=== PATIENT | male | born 1945 | race Caucasian/White ===

== ENCOUNTER 2020-05-31 07:02 | Inpatient (IN) ==
[2020-05-31] MEDS ORDERED: Ondansetron 4 MG/2 ML VIAL IVP PRN (13:40)
[2020-05-31] MEDS: Piperacillin/Tazobactam 3.375 GM in 0.9 % Sodium Chloride Mini Bag 100 ML IVPB SCH ×2 (15:16→23:26)
[2020-05-31] MEDS: Vancomycin 1,750 MG/517.5 ML IV.SOLN IVPB SCH (16:24)
[2020-05-31] MEDS: *HR* Heparin 5,000 UNIT/ML VIAL SQ SCH (18:27)
[2020-05-31] MEDS: Acetaminophen 325 MG TABLET PO PRN (19:44)
[2020-05-31] MEDS: Budesonide/Formoterol 160/4.5 1 PUFF INH IH SCH (20:37)
[2020-05-31] MEDS: Ipratropium/Albuterol Neb 3 ML IH PRN (20:38)
[2020-06-01] MEDS: Ipratropium/Albuterol Neb 3 ML IH PRN ×3 (03:43→12:07)
[2020-06-01 05:07] LABS: Basophils % 0.1 %; Eosinophils % 0.1 %; Hematocrit 30.9 % (37.5-50.1); Hemoglobin 8.8 g/dL (12.9-16.9); Mean Corpuscular HGB Conc 28.5 g/dL (31.6-35.5)
[2020-06-01 05:09] LABS: Lymphocytes # 0.4 K/mcL (0.6-4.6); Lymphocytes % 1.6 %; Mean Corpuscular Hemoglobin 27.3 pg (28.0-33.3); Mean Platelet Volume 9.2 fL (9.4-12.4); Monocytes # 1.3 K/mcL (0.0-1.3); Monocytes % 5.9 %; Platelet Count 227 K/mcL (140-400); Red Blood Count 3.22 M/mcL (4.19-5.50); Segmented Neutrophils % 91.3 %; White Blood Count 22.5 K/mcL (4.3-11.1)
[2020-06-01] MEDS: *HR* Heparin 5,000 UNIT/ML VIAL SQ SCH ×2 (05:17→17:24)
[2020-06-01 05:19] LABS: Neutrophils # 20.5 K/mcL (1.6-8.9)
[2020-06-01 05:29] LABS: Calcium 7.8 mg/dL (8.6-10.3); Magnesium 2.1 mg/dL (1.6-2.6); Potassium 4.3 mEq/L (3.5-5.1)
[2020-06-01 06:16] LABS: Hypochromasia Present (Not Present); Platelet Estimate Normal (Normal)
[2020-06-01] MEDS: Budesonide/Formoterol 160/4.5 1 PUFF INH IH SCH ×2 (09:19→22:30)
[2020-06-01] MEDS: amLODIPine 5 MG TABLET PO SCH (09:36)
[2020-06-01] MEDS: Piperacillin/Tazobactam 3.375 GM in 0.9 % Sodium Chloride Mini Bag 100 ML IVPB SCH ×2 (09:37→16:19)
[2020-06-01] MEDS: Acetaminophen 325 MG TABLET PO PRN ×2 (11:29→20:31)
[2020-06-01] MEDS ORDERED: 0.9 % Sodium Chloride 1,000 ML IVC SCH (12:30)
[2020-06-01] MEDS ORDERED: 0.9 % Sodium Chloride 1,000 ML ONE (12:33)
[2020-06-01] MEDS ORDERED: 0.9 % Sodium Chloride 500 ML IVC SCH (12:45)
[2020-06-01 13:55] LABS: Adenovirus Not Detected (Not Detect); Coronavirus 229E Not Detected (Not Detect); Coronavirus HKU1 Not Detected (Not Detect); Coronavirus NL63 Not Detected (Not Detect); Coronavirus OC43 Not Detected (Not Detect); Human Metapneumovirus Not Detected (Not Detect); Human Rhinovirus/Enterovirus Not Detected (Not Detect); Influenza A Subtype 2009 H1 Not Detected (Not Detect); SARS-CoV-2 Not Detected (Not Detect)
[2020-06-01 13:56] LABS: Bordetella Pertussis Not Detected (Not Detect); Chlamydophila pneumoniae Not Detected (Not Detect); Influenza B Not Detected (Not Detect); Mycoplasma pneumoniae Not Detected (Not Detect); Parainfluenza Virus 1 Not Detected (Not Detect); Parainfluenza Virus 2 Not Detected (Not Detect); Parainfluenza Virus 3 Not Detected (Not Detect); Parainfluenza Virus 4 Not Detected (Not Detect); Respiratory Syncytial Virus Not Detected (Not Detect)
[2020-06-01] MEDS: Vancomycin 1,750 MG/517.5 ML IV.SOLN IVPB SCH (15:57)
[2020-06-02] MEDS: Piperacillin/Tazobactam 3.375 GM in 0.9 % Sodium Chloride Mini Bag 100 ML IVPB SCH (00:20)
[2020-06-02] MEDS: Ipratropium/Albuterol Neb 3 ML IH PRN (00:26)
[2020-06-02 03:49] LABS: Basophils % 0.2 %; Eosinophils % 1.2 %; Mean Corpuscular HGB Conc 28.2 g/dL (31.6-35.5)
[2020-06-02 03:50] LABS: Eosinophils # 0.2 K/mcL (0.0-0.6); Hematocrit 30.5 % (37.5-50.1); Hemoglobin 8.6 g/dL (12.9-16.9); Immature Granulocytes % 1.6 % (0-4); Lymphocytes # 0.3 K/mcL (0.6-4.6); Lymphocytes % 1.3 %; Mean Corpuscular Hemoglobin 27.4 pg (28.0-33.3); Mean Corpuscular Volume 97.1 fL (83.0-100.0); Mean Platelet Volume 9.1 fL (9.4-12.4); Monocytes # 1.4 K/mcL (0.0-1.3); Monocytes % 7.3 %; Neutrophils # 16.9 K/mcL (1.6-8.9); Nucleated Red Blood Cells 0.1 /100 WBC (0); Platelet Count 236 K/mcL (140-400); Red Blood Count 3.14 M/mcL (4.19-5.50); Red Cell Distribution Width 15.4 % (11.5-14.5); Segmented Neutrophils % 88.4 %; White Blood Count 19.1 K/mcL (4.3-11.1)
[2020-06-02] MEDS: Acetaminophen 325 MG TABLET PO PRN (03:50)
[2020-06-02 04:08] LABS: BUN/Creatinine Ratio 18 (6-26); Blood Urea Nitrogen 41 mg/dL (8-23); Calcium 7.8 mg/dL (8.6-10.3); Carbon Dioxide 26 mEq/L (23-29); Chloride 102 mEq/L (98-107); Glucose 151 mg/dL (70-105); Osmolality,Calculated 295 (280-300); Potassium 4.5 mEq/L (3.5-5.1); Sodium 136 mEq/L (136-145); eGFR For African Americans 34 (> 60); eGFR For Non-African Americans 28 (> 60)
[2020-06-02 04:27] LABS: Hypochromasia Present (Not Present); Platelet Estimate Normal (Normal)
[2020-06-02 04:35] LABS: ABG Base Excess 2 mEq/L (-2 to 3); ABG HCO3 30 mEq/L (21-27); ABG Oxygen Saturation 89 % (95-98); ABG PCO2 69 mmHg (35-45); ABG PH 7.25 pH Units (7.32-7.45); ABG PO2 67 mmHg (85-104); ABG TCO2 33 mEq/L (20-26)
[2020-06-02] MEDS: *HR* Heparin 5,000 UNIT/ML VIAL SQ SCH ×2 (05:19→17:33)
[2020-06-02] MEDS: Budesonide/Formoterol 160/4.5 1 PUFF INH IH SCH ×2 (07:36→20:20)
[2020-06-02] MEDS: Cefepime HCl 1,000 MG in 0.9 % Sodium Chloride Mini Bag 100 ML IVPB SCH ×2 (08:39→17:32)
[2020-06-02] MEDS: MetroNIDAZOLE 500 MG/100 ML 500 MG/100 ML BAG IVPB SCH ×2 (08:39→15:39)
[2020-06-02] MEDS: amLODIPine 5 MG TABLET PO SCH (08:55)
[2020-06-02] MEDS ORDERED: *HR* FentaNYL (PF) 100 MCG/2 ML VIAL ONE (10:45)
[2020-06-02] MEDS ORDERED: Lidocaine -MPF 2% 2 ML VIAL ONE (10:46)
[2020-06-02] MEDS ORDERED: *HR* Propofol 200 MG/20 ML VIAL IVP ONE (10:46)
[2020-06-02] MEDS ORDERED: Ondansetron 4 MG/2 ML VIAL ONE (10:46)
[2020-06-02] MEDS ORDERED: *HR* Succinylcholine 200 MG/10 ML VIAL IVP ONE (10:46)
[2020-06-02] MEDS ORDERED: Dexamethasone 4 MG/ML VIAL ONE (10:46)
[2020-06-02] MEDS ORDERED: *HR* PHENYLEPHRINE 1,000 MCG/10 ML SYRINGE IVP ONE (12:04)
[2020-06-02] MEDS ORDERED: *HR* EPINEPHrine 1 MG/10 ML SYRINGE INTRATRACH PRN (12:13)
[2020-06-02] MEDS: MethylPREDNISolone 40 MG/ML VIAL IVP SCH ×2 (13:52→17:32)
[2020-06-02 14:59] LABS: Amorphous Sediment,Urine Few per hpf (None-Few); Bilirubin,Urine Negative (Negative); Blood,Urine Negative (Negative); Clarity,Urine Turbid (Clear); Color,Urine Yellow (Yellow); Glucose,Urine (UA) Normal (Normal); Ketones,Urine Negative (Negative); Leukocyte Esterase,Urine Negative (Negative); Nitrite,Urine Negative (Negative); Protein,Urine 70 mg/dL (Neg-Trace); Specific Gravity,Urine 1.018 (1.010-1.025); Squamous Epithelial Cell,Urine Few per hpf (None-Few); Urobilinogen,Urine Normal (Normal)
[2020-06-02 15:19] LABS: Iron < 10 mcg/dL (65-175); Transferrin 110 mg/dL (203-362)
[2020-06-02 17:34] LABS: Appearance of Body Fluid Clear (Clear); Volume of Body Fluid 20 mL
[2020-06-02] MEDS ORDERED: Albumin 25% 25gram/100mL 25 GM/100 ML IV.SOLN IVPB ONE (20:15)
[2020-06-03] MEDS: MetroNIDAZOLE 500 MG/100 ML 500 MG/100 ML BAG IVPB SCH ×2 (00:26→07:46)
[2020-06-03 04:21] LABS: Basophils % 0.1 %; Hemoglobin 8.1 g/dL (12.9-16.9); Mean Platelet Volume 9.4 fL (9.4-12.4); Platelet Count 270 K/mcL (140-400); Red Cell Distribution Width 15.4 % (11.5-14.5)
[2020-06-03 04:22] LABS: Hematocrit 29.7 % (37.5-50.1); Immature Granulocytes % 1.8 % (0-4); Lymphocytes # 0.4 K/mcL (0.6-4.6); Lymphocytes % 2.2 %; Mean Corpuscular HGB Conc 27.3 g/dL (31.6-35.5); Mean Corpuscular Hemoglobin 27.6 pg (28.0-33.3); Monocytes # 0.3 K/mcL (0.0-1.3); Monocytes % 1.7 %; Neutrophils # 16.4 K/mcL (1.6-8.9); Red Blood Count 2.94 M/mcL (4.19-5.50); Segmented Neutrophils % 94.2 %; White Blood Count 17.4 K/mcL (4.3-11.1)
[2020-06-03 04:39] LABS: Calcium 7.6 mg/dL (8.6-10.3); Potassium 5.3 mEq/L (3.5-5.1)
[2020-06-03 05:00] LABS: Platelet Estimate Normal (Normal)
[2020-06-03] MEDS: *HR* Heparin 5,000 UNIT/ML VIAL SQ SCH ×2 (05:12→17:32)
[2020-06-03] MEDS: Cefepime HCl 1,000 MG in 0.9 % Sodium Chloride Mini Bag 100 ML IVPB SCH ×2 (05:12→17:31)
[2020-06-03] MEDS: MethylPREDNISolone 40 MG/ML VIAL IVP SCH ×2 (05:12→17:32)
[2020-06-03] MEDS ORDERED: 0.9 % Sodium Chloride 250 ML IVC PRN (07:41)
[2020-06-03] MEDS ORDERED: 0.9 % Sodium Chloride 1,000 ML PRIME SCH (07:45)
[2020-06-03] MEDS: amLODIPine 5 MG TABLET PO SCH (07:46)
[2020-06-03] MEDS ORDERED: 0.9 % Sodium Chloride 500 ML ONE (07:51)
[2020-06-03] MEDS ORDERED: *HR* Heparin 5,000 UNIT/ML VIAL ONE (08:08)
[2020-06-03] MEDS: Budesonide/Formoterol 160/4.5 1 PUFF INH IH SCH ×2 (11:11→20:23)
[2020-06-03 11:21] LABS: INR 1.2; Prothrombin Time 13.6 Seconds (9.4-12.1)
[2020-06-03 11:43] LABS: Hepatitis B Surface Antibody < 3.10 mIU/mL
[2020-06-03 11:54] LABS: Hepatitis B Surface Antigen Nonreactive (Nonreactive)
[2020-06-03] MEDS ORDERED: *HR* Heparin 10,000 UNIT/10 ML VIAL ONE (14:31)
[2020-06-03] MEDS: metroNIDAZOLE 500 MG TABLET PO SCH ×2 (15:07→21:27)
[2020-06-03] MEDS: Ipratropium/Albuterol Neb 3 ML IH PRN (16:12)
[2020-06-04 03:14] LABS: Basophils % 0.1 %; Monocytes % 3.8 %
[2020-06-04 03:16] LABS: Hematocrit 29.5 % (37.5-50.1); Hemoglobin 8.2 g/dL (12.9-16.9); Immature Granulocytes % 1.4 % (0-4); Lymphocytes # 0.3 K/mcL (0.6-4.6); Mean Corpuscular HGB Conc 27.8 g/dL (31.6-35.5); Mean Corpuscular Hemoglobin 26.9 pg (28.0-33.3); Mean Corpuscular Volume 96.7 fL (83.0-100.0); Mean Platelet Volume 9.4 fL (9.4-12.4); Monocytes # 0.6 K/mcL (0.0-1.3); Neutrophils # 15.3 K/mcL (1.6-8.9); Nucleated Red Blood Cells 0.1 /100 WBC (0); Platelet Count 288 K/mcL (140-400); Red Blood Count 3.05 M/mcL (4.19-5.50); Red Cell Distribution Width 15.4 % (11.5-14.5); Segmented Neutrophils % 92.7 %; White Blood Count 16.5 K/mcL (4.3-11.1)
[2020-06-04 03:30] LABS: Calcium 7.6 mg/dL (8.6-10.3); Potassium 4.5 mEq/L (3.5-5.1)
[2020-06-04 04:08] LABS: Platelet Estimate Normal (Normal)
[2020-06-04] MEDS: *HR* Heparin 5,000 UNIT/ML VIAL SQ SCH ×2 (05:13→19:05)
[2020-06-04] MEDS: Cefepime HCl 1,000 MG in 0.9 % Sodium Chloride Mini Bag 100 ML IVPB SCH (05:14)
[2020-06-04] MEDS: MethylPREDNISolone 40 MG/ML VIAL IVP SCH ×2 (05:14→19:03)
[2020-06-04] MEDS ORDERED: 0.9 % Sodium Chloride 250 ML IVC PRN (07:10)
[2020-06-04] MEDS: amLODIPine 5 MG TABLET PO SCH (07:45)
[2020-06-04] MEDS: metroNIDAZOLE 500 MG TABLET PO SCH (07:45)
[2020-06-04] MEDS: Budesonide/Formoterol 160/4.5 1 PUFF INH IH SCH ×2 (09:49→23:02)
[2020-06-04] MEDS ORDERED: *HR* LORazepam 2 MG/ML VIAL IVP ONE (11:15)
[2020-06-04] MEDS ORDERED: *HR* LORazepam 2 MG/ML VIAL ONE (11:18)
[2020-06-04 11:57] LABS: Bacteria,Urine Few per hpf (None-Few); Bilirubin,Urine Negative (Negative); Blood,Urine Moderate (Negative); Budding Yeast,Urine Few per hpf (None Seen); Clarity,Urine Turbid (Clear); Color,Urine Light-Yellow (Yellow); Glucose,Urine (UA) Normal (Normal); Ketones,Urine Trace mg/dL (Negative); Leukocyte Esterase,Urine Negative (Negative); Mucus,Urine Few per lpf (None-Few); Nitrite,Urine Negative (Negative); Protein,Urine 100 mg/dL (Neg-Trace); RBC,Urine TNTC per hpf (0-3); Specific Gravity,Urine 1.016 (1.010-1.025); Squamous Epithelial Cell,Urine Few per hpf (None-Few); Urobilinogen,Urine Normal (Normal)
[2020-06-04] MEDS ORDERED: *HR* Heparin 10,000 UNIT/10 ML VIAL IV PRN (14:34)
[2020-06-04 23:03] LABS: Lambda Qnt Free Light Chains 49.89 mg/L (5.71-26.30)
[2020-06-05 03:05] LABS: Hematocrit 29.2 % (37.5-50.1); Lymphocytes % 3.4 %
[2020-06-05 03:07] LABS: Basophils % 0.2 %; Hemoglobin 8.3 g/dL (12.9-16.9); Immature Granulocytes % 2.1 % (0-4); Lymphocytes # 0.5 K/mcL (0.6-4.6); Mean Corpuscular HGB Conc 28.4 g/dL (31.6-35.5); Mean Corpuscular Hemoglobin 27.5 pg (28.0-33.3); Mean Corpuscular Volume 96.7 fL (83.0-100.0); Mean Platelet Volume 9.1 fL (9.4-12.4); Monocytes # 0.5 K/mcL (0.0-1.3); Monocytes % 3.6 %; Platelet Count 297 K/mcL (140-400); Red Blood Count 3.02 M/mcL (4.19-5.50); Segmented Neutrophils % 90.7 %; White Blood Count 13.5 K/mcL (4.3-11.1)
[2020-06-05 03:10] LABS: Neutrophils # 12.2 K/mcL (1.6-8.9)
[2020-06-05] MEDS: Haloperidol Lactate 5 MG/ML VIAL IVP PRN (03:25)
[2020-06-05 03:27] LABS: Calcium 7.7 mg/dL (8.6-10.3); Potassium 4.7 mEq/L (3.5-5.1)
[2020-06-05 03:32] LABS: Platelet Estimate Normal (Normal)
[2020-06-05 03:33] LABS: Hypochromasia Present (Not Present)
[2020-06-05] MEDS: *HR* Heparin 5,000 UNIT/ML VIAL SQ SCH ×2 (05:07→16:38)
[2020-06-05] MEDS: MethylPREDNISolone 40 MG/ML VIAL IVP SCH ×2 (05:08→16:35)
[2020-06-05] MEDS ORDERED: 0.9 % Sodium Chloride 250 ML IVC PRN (07:07)
[2020-06-05] MEDS ORDERED: *HR* Heparin 10,000 UNIT/10 ML VIAL IV PRN (07:07)
[2020-06-05] MEDS ORDERED: 0.9 % Sodium Chloride 1,000 ML PRIME SCH (07:15)
[2020-06-05] MEDS: amLODIPine 5 MG TABLET PO SCH (07:52)
[2020-06-05] MEDS: Budesonide/Formoterol 160/4.5 1 PUFF INH IH SCH ×2 (07:53→23:12)
[2020-06-05] MEDS: *HR* HYDROcodone/Acet 5/325 mg TABLET PO PRN ×2 (10:14→19:43)
[2020-06-05 10:52] LABS: Kappa Qnt Free Light Chains 90.78 mg/L (3.30-19.40)
[2020-06-05] MEDS ORDERED: Perflutren Lipid Microsphere 1.3 ML in 0.9 % Sodium Chloride 8.7 ML IVP PRN (15:39)
[2020-06-05] MEDS: Cefepime HCl 1,000 MG in Water for inj. (sterile) 10 ML IVP SCH (16:38)
[2020-06-06] MEDS: *HR* Heparin 5,000 UNIT/ML VIAL SQ SCH ×2 (04:37→17:01)
[2020-06-06] MEDS: MethylPREDNISolone 40 MG/ML VIAL IVP SCH ×2 (04:37→17:00)
[2020-06-06 05:05] LABS: Basophils # 0.1 K/mcL (0.0-0.2); Basophils % 0.4 %; Hematocrit 30.6 % (37.5-50.1); Hemoglobin 8.9 g/dL (12.9-16.9); Immature Granulocytes % 3.8 % (0-4); Lymphocytes # 0.7 K/mcL (0.6-4.6); Lymphocytes % 5.5 %; Mean Corpuscular HGB Conc 29.1 g/dL (31.6-35.5); Mean Corpuscular Hemoglobin 27.6 pg (28.0-33.3); Mean Corpuscular Volume 94.7 fL (83.0-100.0); Mean Platelet Volume 8.9 fL (9.4-12.4); Monocytes # 0.7 K/mcL (0.0-1.3); Monocytes % 5.6 %; Neutrophils # 10.4 K/mcL (1.6-8.9); Platelet Count 336 K/mcL (140-400); Red Blood Count 3.23 M/mcL (4.19-5.50); Red Cell Distribution Width 14.6 % (11.5-14.5); Segmented Neutrophils % 84.7 %; White Blood Count 12.3 K/mcL (4.3-11.1)
[2020-06-06 05:21] LABS: Calcium 7.9 mg/dL (8.6-10.3); Potassium 4.4 mEq/L (3.5-5.1)
[2020-06-06 05:36] LABS: Platelet Estimate Normal (Normal)
[2020-06-06] MEDS: *HR* HYDROcodone/Acet 5/325 mg TABLET PO PRN (06:37)
[2020-06-06] MEDS: amLODIPine 5 MG TABLET PO SCH (06:38)
[2020-06-06] MEDS ORDERED: 0.9 % Sodium Chloride 250 ML IVC PRN (08:34)
[2020-06-06] MEDS ORDERED: *HR* Heparin 10,000 UNIT/10 ML VIAL IV PRN (08:34)
[2020-06-06] MEDS: Budesonide/Formoterol 160/4.5 1 PUFF INH IH SCH ×2 (11:57→20:09)
[2020-06-06] MEDS: *HR* LORazepam 2 MG/ML VIAL IVP PRN ×2 (13:26→19:44)
[2020-06-06] MEDS: Cefepime HCl 1,000 MG in Water for inj. (sterile) 10 ML IVP SCH (17:00)
[2020-06-06] MEDS: Ammonium Lactate 30 APPL/225 GM BOTTLE TP SCH (21:06)
[2020-06-07 01:59] LABS: Basophils % 0.5 %; Hemoglobin 9.4 g/dL (12.9-16.9); Mean Platelet Volume 9.1 fL (9.4-12.4); Nucleated Red Blood Cells 0.2 /100 WBC (0); Red Cell Distribution Width 14.6 % (11.5-14.5)
[2020-06-07 02:01] LABS: Basophils # 0.1 K/mcL (0.0-0.2); Hematocrit 33.3 % (37.5-50.1); Immature Granulocytes % 4.3 % (0-4); Lymphocytes # 0.5 K/mcL (0.6-4.6); Lymphocytes % 3.9 %; Mean Corpuscular HGB Conc 28.2 g/dL (31.6-35.5); Mean Corpuscular Hemoglobin 27.3 pg (28.0-33.3); Mean Corpuscular Volume 96.8 fL (83.0-100.0); Monocytes # 0.4 K/mcL (0.0-1.3); Monocytes % 3.4 %; Neutrophils # 11.3 K/mcL (1.6-8.9); Platelet Count 376 K/mcL (140-400); Red Blood Count 3.44 M/mcL (4.19-5.50); Segmented Neutrophils % 87.9 %; White Blood Count 12.9 K/mcL (4.3-11.1)
[2020-06-07 02:16] LABS: Calcium 7.9 mg/dL (8.6-10.3); Potassium 5.1 mEq/L (3.5-5.1)
[2020-06-07 02:27] LABS: Hypochromasia Present (Not Present); Platelet Estimate Normal (Normal)
[2020-06-07] MEDS: *HR* Heparin 5,000 UNIT/ML VIAL SQ SCH ×2 (04:47→17:12)
[2020-06-07] MEDS: MethylPREDNISolone 40 MG/ML VIAL IVP SCH ×2 (04:47→17:12)
[2020-06-07] MEDS: amLODIPine 5 MG TABLET PO SCH (08:06)
[2020-06-07] MEDS: Ammonium Lactate 30 APPL/225 GM BOTTLE TP SCH ×2 (08:06→21:00)
[2020-06-07] MEDS: Budesonide/Formoterol 160/4.5 1 PUFF INH IH SCH ×2 (10:08→21:49)
[2020-06-07] MEDS: Sennosides/Docusate Sodium TABLET PO SCH ×2 (10:38→20:59)
[2020-06-07] MEDS: Ipratropium/Albuterol Neb 3 ML IH PRN ×2 (15:31→21:55)
[2020-06-07] MEDS: Cefepime HCl 1,000 MG in Water for inj. (sterile) 10 ML IVP SCH (17:12)
[2020-06-08 02:54] LABS: Basophils # 0.1 K/mcL (0.0-0.2); Basophils % 0.5 %; Hematocrit 32.3 % (37.5-50.1); Hemoglobin 9.5 g/dL (12.9-16.9); Immature Granulocytes % 4.5 % (0-4); Lymphocytes # 0.5 K/mcL (0.6-4.6); Lymphocytes % 3.1 %; Mean Corpuscular HGB Conc 29.4 g/dL (31.6-35.5); Mean Corpuscular Hemoglobin 27.1 pg (28.0-33.3); Mean Corpuscular Volume 92.3 fL (83.0-100.0); Mean Platelet Volume 9.4 fL (9.4-12.4); Monocytes # 0.7 K/mcL (0.0-1.3); Monocytes % 4.8 %; Neutrophils # 12.8 K/mcL (1.6-8.9); Nucleated Red Blood Cells 0.1 /100 WBC (0); Platelet Count 424 K/mcL (140-400); Red Cell Distribution Width 14.6 % (11.5-14.5); Segmented Neutrophils % 87.1 %; White Blood Count 14.8 K/mcL (4.3-11.1)
[2020-06-08 03:14] LABS: Calcium 8.3 mg/dL (8.6-10.3); Potassium 4.7 mEq/L (3.5-5.1)
[2020-06-08] MEDS: Haloperidol Lactate 5 MG/ML VIAL IVP PRN ×2 (03:49→12:50)
[2020-06-08] MEDS: *HR* HYDROcodone/Acet 5/325 mg TABLET PO PRN (03:49)
[2020-06-08] MEDS: Ipratropium/Albuterol Neb 3 ML IH PRN (04:29)
[2020-06-08] MEDS: *HR* Heparin 5,000 UNIT/ML VIAL SQ SCH ×2 (05:05→17:22)
[2020-06-08] MEDS: MethylPREDNISolone 40 MG/ML VIAL IVP SCH ×2 (05:05→17:21)
[2020-06-08] MEDS ORDERED: 0.9 % Sodium Chloride 250 ML IVC PRN (07:24)
[2020-06-08] MEDS ORDERED: *HR* Heparin 10,000 UNIT/10 ML VIAL IV PRN (07:24)
[2020-06-08] MEDS: Ammonium Lactate 30 APPL/225 GM BOTTLE TP SCH ×2 (07:46→21:00)
[2020-06-08] MEDS: Sennosides/Docusate Sodium TABLET PO SCH ×2 (07:46→20:20)
[2020-06-08] MEDS: amLODIPine 5 MG TABLET PO SCH (07:47)
[2020-06-08] MEDS ORDERED: *HR* LORazepam 2 MG/ML VIAL IVP ONE (09:26)
[2020-06-08] MEDS: Budesonide/Formoterol 160/4.5 1 PUFF INH IH SCH ×2 (10:56→20:07)
[2020-06-08] MEDS: Cefepime HCl 1,000 MG in Water for inj. (sterile) 10 ML IVP SCH (17:21)
[2020-06-09] MEDS: Haloperidol Lactate 5 MG/ML VIAL IVP PRN ×2 (03:25→19:53)
[2020-06-09] MEDS: MethylPREDNISolone 40 MG/ML VIAL IVP SCH (05:23)
[2020-06-09] MEDS: *HR* Heparin 5,000 UNIT/ML VIAL SQ SCH ×2 (05:23→18:52)
[2020-06-09 05:57] LABS: Hematocrit 33.6 % (37.5-50.1); Hemoglobin 9.9 g/dL (12.9-16.9); Mean Corpuscular HGB Conc 29.5 g/dL (31.6-35.5); Mean Corpuscular Volume 91.8 fL (83.0-100.0); Mean Platelet Volume 9.1 fL (9.4-12.4); Platelet Count 403 K/mcL (140-400); Red Blood Count 3.66 M/mcL (4.19-5.50); Red Cell Distribution Width 14.6 % (11.5-14.5); White Blood Count 14.3 K/mcL (4.3-11.1)
[2020-06-09 06:06] LABS: Calcium 8.4 mg/dL (8.6-10.3); Potassium 4.7 mEq/L (3.5-5.1)
[2020-06-09 06:30] LABS: Folate 9.4 ng/mL (3.0-16.0)
[2020-06-09] MEDS: Sennosides/Docusate Sodium TABLET PO SCH ×2 (08:37→19:53)
[2020-06-09] MEDS: amLODIPine 5 MG TABLET PO SCH (08:37)
[2020-06-09] MEDS ORDERED: Bisacodyl 10 MG RECTAL SUPPOSITORY RC PRN (10:13)
[2020-06-09] MEDS: Budesonide/Formoterol 160/4.5 1 PUFF INH IH SCH ×2 (10:44→19:48)
[2020-06-09] MEDS: Ammonium Lactate 30 APPL/225 GM BOTTLE TP SCH ×2 (11:43→19:54)
[2020-06-09] MEDS: Cefepime HCl 1,000 MG in Water for inj. (sterile) 10 ML IVP SCH (18:52)
[2020-06-10] MEDS: *HR* Heparin 5,000 UNIT/ML VIAL SQ SCH ×2 (05:37→17:52)
[2020-06-10 06:02] LABS: Hematocrit 35.3 % (37.5-50.1); Hemoglobin 10.3 g/dL (12.9-16.9); Mean Corpuscular HGB Conc 29.2 g/dL (31.6-35.5); Mean Corpuscular Hemoglobin 26.8 pg (28.0-33.3); Mean Corpuscular Volume 91.9 fL (83.0-100.0); Mean Platelet Volume 9.4 fL (9.4-12.4); Platelet Count 408 K/mcL (140-400); Red Blood Count 3.84 M/mcL (4.19-5.50); Red Cell Distribution Width 14.9 % (11.5-14.5); White Blood Count 19.9 K/mcL (4.3-11.1)
[2020-06-10 06:21] LABS: Calcium 8.4 mg/dL (8.6-10.3); Potassium 4.8 mEq/L (3.5-5.1)
[2020-06-10] MEDS: Budesonide/Formoterol 160/4.5 1 PUFF INH IH SCH ×2 (07:40→21:48)
[2020-06-10] MEDS: Ammonium Lactate 30 APPL/225 GM BOTTLE TP SCH ×2 (08:08→19:41)
[2020-06-10] MEDS: Sennosides/Docusate Sodium TABLET PO SCH ×2 (08:08→19:41)
[2020-06-10] MEDS: amLODIPine 5 MG TABLET PO SCH (08:08)
[2020-06-10 15:49] LABS: Total Volume 24 Hour,Urine 1.57 Liters (0.80-1.80)
[2020-06-10 15:58] LABS: Protein/Creatinine Ratio,Urine 0.87 mg/mg (0.00-0.20)
[2020-06-10] MEDS: Cefepime HCl 1,000 MG in Water for inj. (sterile) 10 ML IVP SCH (17:51)
[2020-06-11] MEDS: Acetaminophen 325 MG TABLET PO PRN (02:52)
[2020-06-11] MEDS: *HR* Heparin 5,000 UNIT/ML VIAL SQ SCH ×2 (05:01→16:50)
[2020-06-11 05:25] LABS: Hematocrit 34.5 % (37.5-50.1); Hemoglobin 9.7 g/dL (12.9-16.9); Mean Corpuscular HGB Conc 28.1 g/dL (31.6-35.5); Mean Corpuscular Hemoglobin 26.5 pg (28.0-33.3); Mean Corpuscular Volume 94.3 fL (83.0-100.0); Mean Platelet Volume 9.4 fL (9.4-12.4); Platelet Count 344 K/mcL (140-400); Red Blood Count 3.66 M/mcL (4.19-5.50); Red Cell Distribution Width 15.1 % (11.5-14.5); White Blood Count 19.2 K/mcL (4.3-11.1)
[2020-06-11 05:40] LABS: Calcium 8.1 mg/dL (8.6-10.3); Potassium 5.1 mEq/L (3.5-5.1)
[2020-06-11 05:41] LABS: Magnesium 2.8 mg/dL (1.6-2.6); Phosphorous 6.7 mg/dL (2.7-4.5)
[2020-06-11] MEDS: Budesonide/Formoterol 160/4.5 1 PUFF INH IH SCH ×2 (08:02→22:49)
[2020-06-11] MEDS: Sennosides/Docusate Sodium TABLET PO SCH ×2 (08:05→19:51)
[2020-06-11] MEDS: Ammonium Lactate 30 APPL/225 GM BOTTLE TP SCH ×2 (08:05→19:57)
[2020-06-11] MEDS: amLODIPine 5 MG TABLET PO SCH (08:05)
[2020-06-11 10:49] LABS: Total Volume 24 Hour,Urine 1.57 Liters (0.80-1.80)
[2020-06-11] MEDS: Cefepime HCl 1,000 MG in Water for inj. (sterile) 10 ML IVP SCH (16:50)
[2020-06-11] MEDS ORDERED: MetroNIDAZOLE 500 MG/100 ML 500 MG/100 ML BAG IVPB SCH (17:05)
[2020-06-11] MEDS: MetroNIDAZOLE 500 MG/100 ML 500 MG/100 ML BAG IVPB SCH ×2 (17:41→23:10)
[2020-06-12] MEDS: Acetaminophen 325 MG TABLET PO PRN (04:53)
[2020-06-12] MEDS: MetroNIDAZOLE 500 MG/100 ML 500 MG/100 ML BAG IVPB SCH ×4 (04:59→23:20)
[2020-06-12 05:04] LABS: Lymphocytes % 1.7 %; Mean Platelet Volume 9.6 fL (9.4-12.4); Platelet Count 339 K/mcL (140-400); Red Cell Distribution Width 15.3 % (11.5-14.5)
[2020-06-12 05:05] LABS: Basophils % 0.7 %; Eosinophils % 0.1 %; Hematocrit 34.3 % (37.5-50.1); Hemoglobin 9.5 g/dL (12.9-16.9); Lymphocytes # 0.4 K/mcL (0.6-4.6); Mean Corpuscular HGB Conc 27.7 g/dL (31.6-35.5); Mean Corpuscular Hemoglobin 26.3 pg (28.0-33.3); Monocytes # 1.7 K/mcL (0.0-1.3); Neutrophils # 17.8 K/mcL (1.6-8.9); Red Blood Count 3.61 M/mcL (4.19-5.50); Segmented Neutrophils % 84.5 %
[2020-06-12 05:14] LABS: Basophils # 0.2 K/mcL (0.0-0.2)
[2020-06-12 05:20] LABS: Magnesium 2.7 mg/dL (1.6-2.6); Phosphorous 5.5 mg/dL (2.7-4.5)
[2020-06-12 05:22] LABS: Calcium 7.7 mg/dL (8.6-10.3); Potassium 5.7 mEq/L (3.5-5.1)
[2020-06-12] MEDS: *HR* Heparin 5,000 UNIT/ML VIAL SQ SCH ×2 (05:52→18:06)
[2020-06-12 06:32] LABS: Platelet Estimate Normal (Normal)
[2020-06-12] MEDS: amLODIPine 5 MG TABLET PO SCH (09:50)
[2020-06-12] MEDS: Sennosides/Docusate Sodium TABLET PO SCH ×2 (09:50→19:48)
[2020-06-12] MEDS: Ammonium Lactate 30 APPL/225 GM BOTTLE TP SCH ×2 (09:50→19:48)
[2020-06-12] MEDS: Budesonide/Formoterol 160/4.5 1 PUFF INH IH SCH ×2 (10:11→20:11)
[2020-06-12] MEDS: *HR* HYDROcodone/Acet 5/325 mg TABLET PO PRN (15:55)
[2020-06-12] MEDS ORDERED: predniSONE 20 MG TABLET PO SCH (16:00)
[2020-06-12] MEDS: Cefepime HCl 1,000 MG in Water for inj. (sterile) 10 ML IVP SCH (18:08)
[2020-06-13] MEDS: *HR* HYDROcodone/Acet 5/325 mg TABLET PO PRN (00:11)
[2020-06-13 04:32] LABS: Hematocrit 35.5 % (37.5-50.1); Hemoglobin 10.1 g/dL (12.9-16.9); Lymphocytes % 0.9 %; Mean Corpuscular HGB Conc 28.5 g/dL (31.6-35.5)
[2020-06-13 04:33] LABS: Basophils # 0.1 K/mcL (0.0-0.2); Basophils % 0.4 %; Immature Granulocytes % 4.2 % (0-4); Lymphocytes # 0.2 K/mcL (0.6-4.6); Mean Corpuscular Hemoglobin 27.3 pg (28.0-33.3); Mean Corpuscular Volume 95.9 fL (83.0-100.0); Mean Platelet Volume 9.9 fL (9.4-12.4); Monocytes # 1.2 K/mcL (0.0-1.3); Monocytes % 4.9 %; Platelet Count 386 K/mcL (140-400); Red Cell Distribution Width 15.3 % (11.5-14.5); Segmented Neutrophils % 89.6 %; White Blood Count 23.5 K/mcL (4.3-11.1)
[2020-06-13 04:38] LABS: INR 1.2; Prothrombin Time 14.1 Seconds (9.4-12.1)
[2020-06-13 04:46] LABS: Neutrophils # 21.1 K/mcL (1.6-8.9)
[2020-06-13 04:51] LABS: Calcium 7.9 mg/dL (8.6-10.3); Magnesium 2.8 mg/dL (1.6-2.6); Phosphorous 5.8 mg/dL (2.7-4.5); Potassium 6.3 mEq/L (3.5-5.1)
[2020-06-13] MEDS: MetroNIDAZOLE 500 MG/100 ML 500 MG/100 ML BAG IVPB SCH (05:26)
[2020-06-13] MEDS: *HR* Heparin 5,000 UNIT/ML VIAL SQ SCH (05:26)
[2020-06-13 05:27] LABS: Platelet Estimate Normal (Normal)
[2020-06-13] MEDS ORDERED: Dexamethasone 4 MG/ML VIAL ONE (07:22)
[2020-06-13] MEDS ORDERED: Lidocaine -MPF 2% 2 ML VIAL ONE (07:22)
[2020-06-13] MEDS ORDERED: Ondansetron 4 MG/2 ML VIAL ONE (07:22)
[2020-06-13] MEDS ORDERED: *HR* Succinylcholine 200 MG/10 ML VIAL IVP ONE (07:22)
[2020-06-13] MEDS ORDERED: Lidocaine HCL 4 ML Topical Solution (Laryng-O-Jet Kit Sterile Pak) TP ONE (07:22)
[2020-06-13] MEDS ORDERED: *HR* Propofol 200 MG/20 ML VIAL IVP ONE (07:25)
[2020-06-13] MEDS ORDERED: *HR* FentaNYL (PF) 100 MCG/2 ML VIAL ONE (07:25)
[2020-06-13] MEDS ORDERED: *HR* Rocuronium Bromide 50 MG/5 ML VIAL ONE (07:37)
[2020-06-13 08:12] LABS: ABG Base Excess 5 mEq/L (-2 to 3); ABG HCO3 37 mEq/L (21-27); ABG Oxygen Saturation 91 % (95-98); ABG PCO2 100 mmHg (35-45); ABG PH 7.17 pH Units (7.32-7.45); ABG PO2 81 mmHg (85-104); ABG TCO2 40 mEq/L (20-26); Blood Gas Modality NIV
[2020-06-13] MEDS: Budesonide/Formoterol 160/4.5 1 PUFF INH IH SCH (08:12)
[2020-06-13] MEDS: Ipratropium/Albuterol Neb 3 ML IH PRN (08:13)
[2020-06-13] MEDS ORDERED: *HR* Heparin 10,000 UNIT/10 ML VIAL IV PRN (08:27)
[2020-06-13] MEDS ORDERED: 0.9 % Sodium Chloride 250 ML IVC PRN (08:27)
[2020-06-13] MEDS: Naloxone 0.4 MG/ML INJ IVP PRN ×2 (08:36→08:41)
[2020-06-13 08:55] LABS: Adenovirus Not Detected (Not Detect); Bordetella Pertussis Not Detected (Not Detect); Chlamydophila pneumoniae Not Detected (Not Detect); Coronavirus 229E Not Detected (Not Detect); Coronavirus HKU1 Not Detected (Not Detect); Coronavirus NL63 Not Detected (Not Detect); Coronavirus OC43 Not Detected (Not Detect); Human Metapneumovirus Not Detected (Not Detect); Human Rhinovirus/Enterovirus Not Detected (Not Detect); Influenza A Subtype 2009 H1 Not Detected (Not Detect); Influenza B Not Detected (Not Detect); Mycoplasma pneumoniae Not Detected (Not Detect); Parainfluenza Virus 1 Not Detected (Not Detect); Parainfluenza Virus 2 Not Detected (Not Detect); Parainfluenza Virus 3 Not Detected (Not Detect); Parainfluenza Virus 4 Not Detected (Not Detect); Respiratory Syncytial Virus Not Detected (Not Detect); SARS-CoV-2 Not Detected (Not Detect)
[2020-06-13 10:53] VITALS: BP 57/31
== END 2020-06-13 09:57 | disposition expired | DRG 871 ==
LOC: 3ANU → SUATTDRO 13:20 → 2NNU 06-02 15:06 → 2ANU 06-07 17:40
PROVIDERS: ADMIT Family Medicine; ATTEND Internal Medicine
PROC: ENDOBRF (2020-06-02 12:05)